=== PATIENT | female | born 1980 | race Caucasian/White ===

== ENCOUNTER 2017-03-06 13:59 | Emergency (ER) | payer BC ==
--- NOTE | ~2017-03-06 | CT2 ---
[facility] A Service [facility] RADIOLOGY TEXT RESULTS PATIENT: ALIZA POWERS LOCATION: SED : 76 UNIT #: [id number] AGE: [address]: Jose Boyle MD SEX: F ORDER DR: [id number] [address] [address] [id number] MR#: [id number] Acc #: [id number] NAME: ALIZA POWERS. : 1980 SEX: F STUDY DATE/TIME: 03/06/2017 15:05 UNIT: SED ROOM: STUDY DESCRIPTION: CT Abd and Pelv W Cont Attending Physician: Jose Boyle M.D. Ordering Physician: Jose Boyle M.D. Primary Care Physician: Kailee Han A.P.R.N. MEDICAL IMAGING REPORT This report is preliminary unless electronic signature is present. EXAM CT abdomen and pelvis with contrast DATE 03/06/2017 HISTORY 36-year-old female with abdominal pain for 5 days. Blood in the urine. Previous history of diverticulitis. COMPARISON None. PROCEDURE 5 mm axial images from lung bases through lesser trochanters after intravenous contrast administration. Enteric contrast not administered. Sagittal and coronal reformatted images were obtained. This CT exam was performed with one or more of the following radiation dose reduction techniques: Automatic exposure control, adjustment of mA and/or kV according to patient size, and iterative reconstruction. FINDINGS ABDOMEN FINDINGS: Lung bases are free of acute airspace disease. There is a moderate stool burden in the ascending colon. There are small umbilical and supraumbilical hernias containing only fat. The liver, gallbladder, spleen, pancreas, adrenals and kidneys are within normal limits. The appendix is normal. There is no evidence of high-grade large or small bowel obstruction. [facility] A Service [facility] RADIOLOGY TEXT RESULTS PATIENT: ALIZA POWERS LOCATION: SED : 76 UNIT #: [id number] AGE: [address]: Jose Boyle MD SEX: F ORDER DR: Diverticular changes are seen within the descending and sigmoid colon. There is focal diverticular thickening and inflammatory change in the left lower quadrant of the abdomen (series 2, images 61 and 62, denoted by arrows), thought to represent changes of mild focal acute diverticulitis. No free air, pneumatosis or abscess is evident. PELVIS FINDINGS: Intrauterine device in place. Urinary bladder and rectum are normal. No pelvic adenopathy or free fluid. Extensive sclerotic features along bilateral sacroiliac joints with marginal SI joint erosions. No acute osseous abnormalities are identified. What appear to be superficial varicosities are demonstrated within the left groin. IMPRESSION 1. Features of mild focal acute diverticulitis in the sigmoid colon. No evidence of perforation or abscess. 2. Moderate stool burden in the ascending colon. 3. Normal appendix. 4. Small supraumbilical and umbilical hernias containing only fat. 5. Intrauterine device in place. 6. Degenerative changes of the bilateral sacroiliac joints. Dictated by... Isatu Connors M.D. THIS IS AN ELECTRONICALLY VERIFIED REPORT Isatu Connors M.D. at 03/07/2017 8:43 AM PRABHJOT/dede TD: 03/06/2017 20:08 JOB #: [id number] MEDICAL IMAGING REPORT Page 1 of 1
[~2017-03-06 13:59] MED LIST: AMOXICILLIN PO; EFFEXOR-XR150 MG PO; FLEXERIL10 MG PO; TYLENOL #3 PO; WAL-PROFEN200 M1 PO
[2017-03-06] MEDS ORDERED: FLEXERIL10 MG (14:08)
[2017-03-06 14:41] LABS: BASOPHIL# 0.3 X10e3 (0-0.3); BASOPHIL% 2.9 % (0-2.5); EOSINOPHIL# 0.2 X10e3 (0-0.7); EOSINOPHIL% 1.8 % (0.0-7.0); HEMATOCRIT 38.6 % (35.0-45.0); HEMOGLOBIN 13.1 gm/dL (12.0-16.0); LYMPHOCYTE% 21.8 % (17.0-45.0); MEAN CELL VOLUME 85.3 FL (83-96); MEAN CORPUSCULAR HEMOGLOBIN 28.9 PG (28-34); MEAN CORPUSCULAR HGB CONC 33.8 g/dL (30-36); MEAN PLATELET VOLUME 6.5 FL (6.5-11.5); MONOCYTE# 0.9 X10e3 (0-1.0); NEUTROPHIL# 5.8 X10e3 (1.5-7.1); NEUTROPHIL% 63.5 % (40-75); PLATELET COUNT 372 X10e3 (140-420); RED BLOOD COUNT 4.53 X10e (3.90-5.30); RED CELL DISTRIBUTION WIDTH 14.7 % (11.0-15.5); WHITE BLOOD COUNT 9.2 X10e3 (4.0-10.5)
[2017-03-06 14:42] LABS: URINE SOURCE CLEAN CATCH
[2017-03-06 14:45] LABS: URINE APPEARANCE CLEAR; URINE BILIRUBIN NEG (NEG); URINE BLOOD 1+ (NEG); URINE COLOR YELLOW; URINE GLUCOSE NEG (NORM); URINE KETONE NEG (NEG); URINE LEUKOCYTE ESTERASE 1+ (NEG); URINE NITRATE NEG (NEG); URINE PROTEIN NEG (NEG); URINE UROBILINOGEN 0.2 MG/DL (NORM)
[2017-03-06 14:47] LABS: MICRO INDICATED? YES
[2017-03-06 14:47] LABS: DIFF IND NO
[2017-03-06 14:55] LABS: CULTURE INDICATED? YES; URINE BACTERIA 1+ (NEG); URINE SQUAMOUS EPITHELIAL CELL OCCAS /[HPF]
[2017-03-06 14:59] LABS: ALBUMIN SERUM 3.9 g/dL (3.5-5.0); BILIRUBIN,TOTAL 0.3 mg/dL (0.2-2.0); BUN/CREATININE RATIO 18.57; CALCIUM SERUM 8.9 mg/dL (8.4-10.2); CREATININE SERUM 0.7 mg/dL (0.6-1.4); GLOM FILT RATE Estimated 109.9 mL/min (>60); POTASSIUM 3.7 mmol/L (3.5-5.1); PROTEIN TOTAL SERUM 7.9 g/dL (6.0-8.3)
== END 2017-03-06 15:45 | disposition home or self-care (01) ==
LOC: SED 13:59
PROVIDERS: Emergency Medicine
DX: K57.32 Diverticulitis of large intestine without perforation or abscess without bleeding (principal); F17.210 Nicotine dependence, cigarettes, uncomplicated
CPT/HCPCS: 36415; 74177; 80053; 81003; 84703; 85025; 87086; 96360; 99284; Q9967